=== PATIENT | female | born 1980 | race Hispanic/Latino ===

== ENCOUNTER 2019-04-08 17:34 | Emergency (ER) | payer MEDICAID ==
[2019-04-08] MEDS ORDERED: ONDANSETRON HCL 4 MG/2 ML VIAL ONE (17:57)
[2019-04-08 18:01] LABS: BASOPHILS % (AUTO) 0.3 % (0.0-5.0); EOSINOPHILS % (AUTO) 4.6 % (0.0-8.0); HEMATOCRIT 35.8 % (36-48); LYMPHOCYTES % (AUTO) 24.2 % (21.0-51.0); MEAN CORPUSCULAR HEMOGLOBIN 27.9 pg (27.0-33.0); MEAN CORPUSCULAR HGB CONC 32.8 g/dL (32.0-36.0); NEUTROPHILS % (AUTO) 64.9 % (40.0-77.0); PLATELET COUNT (AUTO) 348 K/uL (130-400); RED BLOOD CELL COUNT(AUTO) 4.21 MIL/uL (4.00-5.50); RED CELL DISTRIBUTION WIDTH 15.9 % (11.0-15.5); WHITE BLOOD COUNT (AUTO) 9.2 K/uL (4.8-10.8)
[2019-04-08 18:13] LABS: CREATININE 0.8 mg/dL (0.5-1.5); POTASSIUM 3.6 mmol/L (3.5-5.1)
[2019-04-08 18:16] LABS: BILIRUBIN,URINE NEGATIVE (NEGATIVE); GLUCOSE, URINE (UA) NEGATIVE (NEGATIVE); KETONES,URINE 15 mg/dL (NEGATIVE); LEUKOCYTE ESTERASE ,URINE SMALL (NEGATIVE); NITRATE,URINE POSITIVE (NEGATIVE); OCCULT BLOOD,URINE LARGE (NEGATIVE); PROTEIN,URINE >=300 mg/dL (NEGATIVE)
[2019-04-08 18:17] LABS: ALBUMIN 3.3 g/dL (3.5-5.0); BILIRUBIN,TOTAL 0.2 mg/dL (0.2-1.0); TOTAL PROTEIN, SERUM 6.9 g/dL (6.0-8.3)
[2019-04-08 18:18] LABS: HCG,QUAL RESULT NEGATIVE (NEGATIVE)
[2019-04-08 18:42] LABS: APPEARANCE,URINE BLOODY (CLEAR)
[2019-04-08 18:43] LABS: COLOR,URINE RED (YELLOW)
[2019-04-08 18:58] LABS: BACTERIA,URINE Rare /HPF (None Seen); RBC,URINE Full Field /HPF (0-1)
[2019-04-08 18:59] LABS: SQUAMOUS EPITHELIAL CELL,UR None Seen /HPF (0-2)
[2019-04-08] MEDS ORDERED: SODIUM CHLORIDE 0.9% 1000ML 1,000 ML IV ONE (19:00)
[2019-04-08] MEDS ORDERED: IPRATROPIUM/ALBUTEROL SULFATE 3 ML SOLUTION IH ONE (20:35)
[2019-04-08] MEDS ORDERED: BENZONATATE 100 MG CAPSULE PO ONE (20:38)
[2019-04-08] MEDS ORDERED: PROMETHAZINE/CODEINE 6.25-10MG/5ML CUP ONE (20:47)
[2019-04-08] MEDS ORDERED: FAMOTIDINE/PF 20 MG/2 ML VIAL IV ONE (20:47)
== END 2019-04-08 22:13 | disposition home or self-care (01) ==
LOC: EDH 17:34
DX: J20.9 Acute bronchitis, unspecified (principal); E86.0 Dehydration; R11.2 Nausea with vomiting, unspecified; R19.7 Diarrhea, unspecified; F32.9 Major depressive disorder, single episode, unspecified; F41.9 Anxiety disorder, unspecified; Z98.890 Other specified postprocedural states; Z72.0 Tobacco use
CPT/HCPCS: 36415; 80053; 81001; 81025; 83690; 85025; 87804 ×2; 87880; 94640; 96374; 96375; 99285; J2405; J3490; J7030; Q0169

== ENCOUNTER 2019-10-21 01:23 | Emergency (ER) | payer MEDICAID, OTHER ==
[2019-10-21] MEDS ORDERED: ACETAMINOPHEN-CODEINE 300/30MG TAB ONE (01:39)
== END 2019-10-21 03:09 | disposition home or self-care (01) ==
LOC: EDH 01:23
DX: S82.891A Other fracture of right lower leg, initial encounter for closed fracture (principal); F41.9 Anxiety disorder, unspecified; F32.9 Major depressive disorder, single episode, unspecified; Z72.0 Tobacco use; X50.1XXA Overexertion from prolonged static or awkward postures, initial encounter; Y93.89 Activity, other specified; Y92.89 Other specified places as the place of occurrence of the external cause; Y99.8 Other external cause status
CPT/HCPCS: 29515; 73610